=== PATIENT | male | born 1990 | race American Indian/Alaskan Native ===

== ENCOUNTER 2017-01-23 20:32 | Emergency (ER) | payer OTHER ==
[2017-01-23 21:32] VITALS: BP 143/92
--- NOTE | 2017-01-24 01:16 | XRay Report ---
FINAL REPORT EXAM: XR FOOT 3 RT HISTORY: Pain over planter aspect COMPARISON: None available. FINDINGS: Three views of right foot obtained. Bony structures are intact. Joint spaces are preserved. No acute fracture dislocation. IMPRESSION: No acute bony abnormality.
--- NOTE | 2017-01-24 01:35 | Emergency Department Report ---
HPI - General Chief Complaint: Extremity Injury, Lower Time Seen by Provider: 01/24/17 00:35 - HPI HPI: 26-year-old male presents today with right foot/arch pain then 1900 hrs. yesterday. Patient states that the pain started post jumping and landing on his foot while playing basketball. Denies any rotation or twisting injury. Describes his pain as 6 out of 10 with standing and walking. No pain at rest. Denies numbness, weakness, paresthesias. Denies history of similar symptoms. Denies trying any medication for pain relief. Denies fever, chills, nausea, vomiting, chest pain, shortness of breath, abdominal pain. ED Past Medical Hx - Past Medical History Previous Medical History?: No - Surgical History Past Surgical History?: No - Social History Smoking Status: Never Smoker Substance Use Type: None - Medications Home Medications: Home Medications Medication Instructions Recorded Confirmed Last Taken Type Naproxen [Naprosyn] 500 mg PO BID #30 tablet 01/24/17 Unknown Rx ED Review of Systems ROS: Stated complaint: RT FOOT PAIN Other details as noted in HPI Constitutional: denies: chills, fever, malaise Eyes: denies: eye pain ENT: denies: ear pain, throat pain, congestion Respiratory: denies: cough, shortness of breath, wheezing Cardiovascular: denies: chest pain, palpitations Endocrine: no symptoms reported Gastrointestinal: denies: abdominal pain, nausea, vomiting Musculoskeletal: arthralgia Neurological: denies: headache, weakness, numbness, paresthesias Physical Exam - Physical Exam Vital Signs: Vital Signs 01/23/17 21:29 Temperature 98.2 F Pulse Rate 96 H Respiratory 18 Rate Blood Pressure 143/92 O2 Sat by Pulse 98 Oximetry Physical Exam: GENERAL: The patient is well-developed and well-nourished. Patient is in NAD. HEAD: Normocephalic. Atraumatic. CHEST/LUNGS: Clear to auscultation throughout. HEART/CARDIOVASCULAR: Regular rate and rhythm. No murmurs, rubs or gallops. ABDOMEN: Abdomen is soft, nontender. Bowel sounds normoactive. No guarding or rebound tenderness. RIGHT FOOT: Full ankle and foot range of motion. Pain with plantar flexion. Tenderness to palpation over plantar aspect of arch and heel. Normal sensation. Peripheral pulses intact. Capillary refill less than 2 seconds. NEURO: Alert and oriented x 3. Antalgic gait. ED Course Vital Signs 01/23/17 21:29 Temperature 98.2 F Pulse Rate 96 H Respiratory 18 Rate Blood Pressure 143/92 O2 Sat by Pulse 98 Oximetry ED Medical Decision Making - Lab Data Vital Signs 01/23/17 21:29 Temperature 98.2 F Pulse Rate 96 H Respiratory 18 Rate Blood Pressure 143/92 O2 Sat by Pulse 98 Oximetry - Radiology Data Radiology results: report reviewed HISTORY: Pain over planter aspect COMPARISON: None available. FINDINGS: Three views of right foot obtained. Bony structures are intact. Joint spaces are preserved. No acute fracture dislocation. IMPRESSION: No acute bony abnormality. - Medical Decision Making 26-year-old male presents today with right foot pain post playing basketball. His x-ray results revealed no fracture or dislocation. Patient is in no acute distress at this time. He will be discharged home and is encouraged to follow up with a primary care provider. He will be sent home on naproxen and is encouraged to return to the emergency room for any worsening symptoms. Critical care attestation.: If time is entered above; I have spent that time in minutes in the direct care of this critically ill patient, excluding procedure time. ED Disposition Clinical Impression: Foot pain Qualifiers: Laterality: right Qualified Code(s): M79.671 - Pain in right foot Disposition: DISCHARGED TO HOME OR SELFCARE Is pt being admited?: No Does the pt Need Aspirin: No Condition: Stable Instructions: Plantar Fasciitis (ED), Foot Sprain (ED) Additional Instructions: Follow-up with primary care provider. Return to the emergency department if symptoms worsen. Prescriptions: Naproxen [Naprosyn] 500 mg PO BID #30 tablet Referrals: WANDA DENNEY MD [Primary Care Provider] - 3-5 Days [facility] [Outside] - 3-5 Days ARA RHODES MD [Staff Physician] - 3-5 Days Forms: Work/School Release Form(ED) Time of Disposition: 01:35
== END 2017-01-24 01:45 | disposition home or self-care (01) ==
LOC: ED 20:32
DX: M79.671 Pain in right foot (principal)
CPT/HCPCS: 99283